=== PATIENT | female | born 1955 | race Caucasian/White ===

== ENCOUNTER → 2017-09-07 | Outpatient (CLI) | payer OTHER ==
[2017-09-07 11:01] VITALS: BP 149/74; PULSE 76; RESP 16; TEMP 97.1; BMI 24.3
--- NOTE | 2017-09-07 11:56 | P.HPOB ---
History of Present Illness H&P Date: 09/07/17 Chief Complaint: The patient is here for her routine gynecologic exam and mammogram. This is a 61 year old with an LMP of 2009. The patient is without gynecologic complaints and denies any postmenopausal bleeding. Review of Systems She has lost 15 pounds over the last 4 years with diet changes. She denies respiratory, cardiac, or G.I. problems. 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 She has had 5 vaginal deliveries and 3 spontaneous abortions. Past Surgical History: Breast Surgery (Multiple biopsies in the past), Cholecystectomy, Tubal Ligation Additional Past Surgical History / Comment(s): Multiple moles removed in the past. 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 BRCA testing was negative.) Medications and Allergies Home Medications Medication Instructions Recorded Confirmed Type No Known Home Medications [No 09/07/17 09/07/17 History Known Home Medications] Allergies Allergy/AdvReac Type Severity Reaction Status Date / Time Tetracyclines Allergy Rash/Hives Verified 11/07/13 12:14 codeine AdvReac Nausea & Verified 11/07/13 12:14 Vomiting Exam - Vital Signs Vital signs: Vital Signs Temp Pulse Resp BP 09/07/17 10:44 97.1 F L 76 16 149/74 Intake and Output 09/06/17 09/07/17 09/07/17 22:59 06:59 14:59 Other: Weight 64.41 kg Height 5'4", BMI 24.4. This is a well-developed well-nourished white female who is alert and oriented times 3 in no acute distress. HEENT: Within normal limits. NECK: Supple without mass or thyromegaly. CHEST AND LUNGS: Clear to auscultation. HEART: Regular rate and rhythm. BREASTS: Are without mass or discharge. AXILLARY EXAM: Negative for adenopathy. BACK: Negative for CVA tenderness. ABDOMEN: Soft, nontender, without palpable masses. PELVIC EXAM: Normal external genitalia with mild atrophy. Cervix reveals a small benign appearing endocervical polyp measuring approximately 5 mm. The cervix is otherwise unremarkable. The vagina appears normal with mild atrophy. There is no unusual discharge. There is no evidence of prolapse. The uterus is midposition, nongravid size and nontender. There are no palpable adnexal masses or tenderness. RECTAL EXAM: rectovaginal exam is negative for mass or tenderness and is negative for occult blood. EXTREMITIES: Nontender. IMPRESSION: 1. 61-year-old menopausal female with benign appearing endocervical polyp which is asymptomatic. 2. Otherwise unremarkable gynecologic exam. 3. Strong family history of breast cancer. PLAN: 1. Pap smear was performed. 2. We have discussed the endocervical polyp. She is declining removal of the polyp therefore, we will follow this conservatively. She will call if she has any abnormal vaginal bleeding. 3. Screening mammogram will be done today. 4. We have discussed BRCA testing which she understands is available. Her daughter tested negative for this, but her other family members who had breast cancer were not tested. 5. I have recommended screening colonoscopy since she has never had this done. She is declining this. She will let me know if she changes her mind. 6. Osteoporosis prevention was discussed. Bone density screening was recommended and an order slip was given the patient for this. 7. She will return in one year and PRN
--- NOTE | 2017-09-08 10:42 | MM ---
Reason for exam: screening (asymptomatic). Last mammogram was performed 3 years and 3 months ago. History: Patient is postmenopausal and history of other cancer. Family history of breast cancer in mother at age 60, premenopausal breast cancer in sister at age 48, and breast cancer in sister at age 51. Benign US breast aspiration ea add RT of the right breast, November 20, 2013. Benign US breast aspiration single LT of the left breast, November 20, 2013. Benign US breast aspiration single RT of the right breast, November 20, 2013. Benign US left CoreBiopsy of the left breast, November 06, 2004. Cyst aspiration of the left breast. 3 excisional biopsies of the left breast. Took hormonal contraceptives for 4 years. Physical Findings: A clinical breast exam by your physician is recommended on an annual basis and results should be correlated with mammographic findings. MG 3D Screening Mammo W/Cad Bilateral CC and MLO view(s) were taken. Prior study comparison: June 04, 2014, bilateral MG diagnostic mammo w CAD LAYLA. November 07, 2013, bilateral MG diagnostic mammo w CAD [facility]LA. The breast tissue is heterogeneously dense. This may lower the sensitivity of mammography. There is chronic nodularity. New nodule upper right breast 2.2cm from nipple. New distortion upper outer left breast. New nodule lower inner left breast 4.4cm from nipple. This finding is changed when compared with previous exams. ASSESSMENT: Incomplete: need additional imaging evaluation, BI-RAD 0 RECOMMENDATION: Special view mammogram and ultrasound of both breasts. [facility] will attempt to contact patient to return for supplemental views and ultrasound.
== END | disposition home or self-care (01) ==
LOC: WWCWWP 10:32
PROVIDERS: ATTEND Obstetrics & Gynecology
DX: Z12.31 Encounter for screening mammogram for malignant neoplasm of breast (principal)
CPT/HCPCS: 77063; 77067

== ENCOUNTER → 2017-09-15 | Outpatient (CLI) | payer OTHER ==
--- NOTE | 2017-09-15 11:25 | MM ---
Reason for exam: additional evaluation requested from abnormal screening. Last mammogram was performed less than 1 month ago. History: Patient is postmenopausal and history of other cancer. Family history of breast cancer in mother at age 60, premenopausal breast cancer in sister at age 48, and breast cancer in sister at age 51. Benign US breast aspiration ea add RT of the right breast, November 20, 2013. Benign US breast aspiration single LT of the left breast, November 20, 2013. Benign US breast aspiration single RT of the right breast, November 20, 2013. Benign US left CoreBiopsy of the left breast, November 06, 2004. Cyst aspiration of the left breast. 3 excisional biopsies of the left breast. Took hormonal contraceptives for 4 years. Physical Findings: Nurse did not find any significant physical abnormalities on exam. MG 3D Work Up W/Cad LAYLA Bilateral spot compression CC, spot compression MLO, and ML view(s) were taken. Prior study comparison: September 07, 2017, bilateral MG 3d screening mammo w/cad. June 04, 2014, bilateral MG diagnostic mammo w CAD LAYLA. There is a low density mass in the left lower inner quadrant 4cm from nipple that persists on additional views. There is a subtle retroareolar right upper outer quadrant focal asymmetry appearing less conspicuous on additional views. Upper left asymmetry resolves on additional views and appears as fibroglandular tissue. These results were verbally communicated with the patient and result sheet given to the patient on 09/15/17. ASSESSMENT: Incomplete: need additional imaging evaluation, BI-RAD 0 RECOMMENDATION: Ultrasound of both breasts. (left lower inner quadrant, right upper outer quadrant retroareolar)
--- NOTE | 2017-09-15 11:27 | USB ---
Reason for exam: additional evaluation requested from abnormal screening. History: Patient is postmenopausal and history of other cancer. Family history of breast cancer in mother at age 60, premenopausal breast cancer in sister at age 48, and breast cancer in sister at age 51. Benign US breast aspiration ea add RT of the right breast, November 20, 2013. Benign US breast aspiration single LT of the left breast, November 20, 2013. Benign US breast aspiration single RT of the right breast, November 20, 2013. Benign US left CoreBiopsy of the left breast, November 06, 2004. Cyst aspiration of the left breast. 3 excisional biopsies of the left breast. Took hormonal contraceptives for 4 years. US Breast Workup Limited LAYLA Right limited breast ultrasound including focal area of concern, retroareolar and axilla demonstrates a 3mm shadowing calcified cyst at the posterior nipple. Left limited breast ultrasound including focal area of concern, retroareolar and axilla demonstrates a 5 x 4 x 5mm complex cyst at 6 o'clock, a 7 x 6 x 10mm complex cyst at 6 o'clock and a 10 x 6 x 6mm calcified cyst at the posterior nipple. These results were verbally communicated with the patient and result sheet given to the patient on 09/15/17. ASSESSMENT: Benign, BI-RAD 2 RECOMMENDATION: Return to routine screening mammogram schedule for both breasts.
== END | disposition home or self-care (01) ==
LOC: RADMAMWWP 09:01
PROVIDERS: ATTEND Obstetrics & Gynecology
DX: R92.8 Other abnormal and inconclusive findings on diagnostic imaging of breast (principal)
CPT/HCPCS: 77062; 77066

== ENCOUNTER → 2018-12-21 | Outpatient (CLI) | payer OTHER ==
[2018-12-21 09:27] VITALS: BP 121/75; PULSE 84; RESP 16; TEMP 98.1; BMI 25.2
--- NOTE | 2018-12-21 10:06 | P.HPOB ---
History of Present Illness H&P Date: 12/21/18 Chief Complaint: The patient is here for her routine gynecologic exam and ma mmogram. This is a 62-year-old with an LMP of 2011. The patient is without gynecologic complaints and denies any postmenopausal bleeding. Review of Systems The patient has gained 4 pounds over the last year. She denies respiratory, cardiac, or G.I. problems. 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 She has had 5 vaginal deliveries and 3 spontaneous abortions. History of Any Multi-Drug Resistant Organisms: None Reported Past Surgical History: Breast Surgery, Cholecystectomy, Tubal Ligation Additional Past Surgical History / Comment(s): Multiple breast biopsies. Multiple moles removed in the past. 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 - Past Family History Mother Family Medical History: Cancer Additional Family Medical History / Comment(s): Breast cancer. Sister(s) Family Medical History: Cancer Additional Family Medical History / Comment(s): 2 sisters with breast cancer. Daughter(s) Family Medical History: Cancer Additional Family Medical History / Comment(s): Breast cancer at age 38. BRCA testing was negative. Medications and Allergies Home Medications Medication Instructions Recorded Confirmed Type No Known Home Medications 09/07/17 12/21/18 History Allergies Allergy/AdvReac Type Severity Reaction Status Date / Time Tetracyclines Allergy Rash/Hives Verified 12/21/18 09:26 codeine AdvReac Nausea & Verified 12/21/18 09:26 Vomiting Exam Vital Signs Temp Pulse Resp BP Pulse Ox 12/21/18 09:21 98.1 F 84 16 121/75 99 Intake and Output 12/20/18 12/21/18 12/21/18 22:59 06:59 14:59 Other: Weight 66.678 kg Height 5'4", weight 147 pounds, BMI 25.2. This is a well-developed well-nourished weight female who is alert and oriented times 3 in no acute distress. HEENT: Within normal limits. NECK: Supple without mass or thyromegaly. CHEST AND LUNGS: Clear to auscultation. HEART: Regular rate and rhythm. BREASTS: Are without mass or discharge. AXILLARY EXAM: Negative for adenopathy. BACK: Negative for CVA tenderness. ABDOMEN: Soft, nontender, without palpable masses. PELVIC EXAM: Normal external genitalia with mild atrophy. Vagina appears normal with mild atrophy. The cervix has an endocervical polyp that appears benign. The polyp has the appearance of a small tongue approximately the width of the external os and measures approximately 5 mm x 4 mm. There is no unusual discharge. There is no evidence of prolapse. The uterus is midposition, nongravid size and nontender. There are no palpable adnexal masses or tenderness. RECTAL EXAM: rectovaginal exam is negative for mass or tenderness and is negative for occult blood. EXTREMITIES: Nontender. IMPRESSION: 1. 62-year-old menopausal female with stable benign appearing endocervical polyp which is asymptomatic. 2. Otherwise unremarkable gynecologic exam. 3. Strong family history of breast cancer. PLAN: 1. Pap smear was deferred since she had a normal one on 09/07/2017. She will call if she has any abnormal vaginal bleeding. We discussed the option of removal of the endocervical polyp which she again is declining. We will continue to follow it conservatively. 2. Self breast awareness was discussed with the patient. 3. Screening mammogram will be done today. 4. Osteoporosis prevention was discussed. I have stressed the importance of adequate calcium, vitamin D and regular exercise. Recommended amounts of calcium and vitamin D were also discussed. I have again recommended bone density testing. She would like to wait until next year to have this done. 5. I have again recommended screening colonoscopy. She will discuss her options including colonoscopy and Cologuard testing with her primary care physician. 6. She was advised to return in one year for her annual well woman exam.
--- NOTE | 2018-12-22 14:26 | MM ---
Reason for exam: screening (asymptomatic). Last mammogram was performed 1 year and 3 months ago. History: Patient is postmenopausal and history of other cancer. Family history of breast cancer in mother at age 60, premenopausal breast cancer in sister at age 48, and breast cancer in sister at age 51. Benign US breast aspiration ea add RT of the right breast, November 20, 2013. Benign US breast aspiration single LT of the left breast, November 20, 2013. Benign US breast aspiration single RT of the right breast, November 20, 2013. Benign US left CoreBiopsy of the left breast, November 06, 2004. Cyst aspiration of the left breast. 3 excisional biopsies of the left breast. Took hormonal contraceptives for 4 years. Physical Findings: A clinical breast exam by your physician is recommended on an annual basis and results should be correlated with mammographic findings. MG 3D Screening Mammo W/Cad Bilateral CC and MLO view(s) were taken. Prior study comparison: September 15, 2017, bilateral MG 3d work up w/cad [facility]. September 07, 2017, bilateral MG 3d screening mammo w/cad. The breast tissue is heterogeneously dense. This may lower the sensitivity of mammography. There are benign appearing round oval circumscribed bilateral waxing/waning masses most characteristic of cysts. Benign appearing bilateral calcifications. Bilateral biopsy markers. ASSESSMENT: Benign, BI-RAD 2 RECOMMENDATION: Routine screening mammogram of both breasts in 1 year.
== END ==
LOC: WWCWWP 09:14
PROVIDERS: ATTEND Obstetrics & Gynecology
DX: Z12.31 Encounter for screening mammogram for malignant neoplasm of breast (principal)
CPT/HCPCS: 77063; 77067

== ENCOUNTER → 2022-07-30 | Outpatient (CLI) | payer MEDICARE ==
--- NOTE | 2022-07-30 09:07 | MM ---
Reason for Exam: Clinical finding. Last mammogram was performed 3 year(s) and 7 month(s) ago. Patient History: Menarche at age 16. First Full-Term at age 22. Postmenopausal. Other cancer. Patient used Hormonal Contraceptives for 4 years. Cyst Aspiration on the Left side. Excisional Biopsy on the Left side. Excisional Biopsy on the Left side. Excisional Biopsy on the Left side. 11/20/2013, Benign Cyst Aspiration on the right side. 11/20/2013, Benign Cyst Aspiration on the left side. 11/20/2013, Benign Cyst Aspiration on the right side. 11/06/2004, Benign Core Biopsy on the left side. Sister had breast cancer, age 48. Sister had breast cancer, age 51. Daughter had breast cancer, left, age 38. Sister tested for BRCA1 outcome was negative. Daughter tested for BRCA1 outcome was negative. Risk Values: Alysia 5 year model risk: 9.2%. NCI Lifetime model risk: 29.2%. Tissue Density: The breast tissue is heterogeneously dense. This may lower the sensitivity of mammography. Findings: Analyzed By CAD. Bilateral microclips related to prior biopsies. Enlarging subareolar lobulated mass left breast. Additional chronic appearing masses are present in the left breast as well. On the right, there are subtle areas of grouped/regional calcifications laterally and inferiorly which may be new. However, on magnification views, they become less pronounced and would not be amenable to stereotactic biopsy. They can be reassessed at 6 months. Overall Assessment: Incomplete: need additional imaging evaluation, BI-RAD 0 Management: Diagnostic Breast Ultrasound of both breasts. Electronically signed and approved by: Henrry Alberts M.D. Radiologist
--- NOTE | 2022-07-30 10:16 | USB ---
Reason for Exam: Clinical finding. Patient History: Menarche at age 16. First Full-Term at age 22. Postmenopausal. Other cancer. Patient used Hormonal Contraceptives for 4 years. Cyst Aspiration on the Left side. Excisional Biopsy on the Left side. Excisional Biopsy on the Left side. Excisional Biopsy on the Left side. 11/20/2013, Benign Cyst Aspiration on the right side. 11/20/2013, Benign Cyst Aspiration on the left side. 11/20/2013, Benign Cyst Aspiration on the right side. 11/06/2004, Benign Core Biopsy on the left side. Sister had breast cancer, age 48. Sister had breast cancer, age 51. Daughter had breast cancer, left, age 38. Sister tested for BRCA1 outcome was negative. Daughter tested for BRCA1 outcome was negative. Risk Values: Alysia 5 year model risk: 9.2%. NCI Lifetime model risk: 29.2%. Technique: Method: Whole Breast Handheld. Prior Study Comparison: 09/07/2017 Bilateral Screening Mammogram, [facility]. 09/15/2017 Bilateral Diagnostic Mammogram, [facility]. 12/21/2018 Bilateral Screening Mammogram, [facility]. Findings: The whole breast of both breasts, the axilla of both breasts and the retroareolar of both breasts were scanned. A complete US of all four quadrants of both breasts, axilla, and retro-areolar region were reviewed. Right: * *At the 6:00 position, 3 cm from the nipple, there is a circumscribed round 7 x 6 x 6 mm hypoechoic lesion with posterior through transmission. On the patient's 2013 exam, we note a much larger 1.2 cm cyst in this location. Probable cyst with debris. Six-month follow-up recommended. * At the 12:00 position, 1 cm from the nipple, there is a benign 5 mm cyst. * No other solid or cystic lesion or axillary lymphadenopathy. Left: * At the patient's large palpable site located behind the nipple, there is a large, lobulated cyst measuring 3.9 x 3.1 x 2.2 cm. Minimal internal debris is present. The patient desires cyst aspiration. * At 5:00, 4 cm from the nipple, there is a benign 7 x 6 x 4 mm cyst. * At 6:00, 3 cm from the nipple, there is a benign bilobed 9 x 5 x 5 mm cyst. * At 7:00, 3 cm from the nipple, there is a vertically oriented area of shadowing measuring 5 x 5 x 4 mm for which tissue sampling is recommended. * No other solid or cystic lesion or axillary lymphadenopathy. Overall Assessment: Suspicious, BI-RAD 4 Management: Ultrasound Core Biopsy of the left breast. Diagnostic Mammogram of the right breast in 6 months. Left: * Ultrasound-guided core needle biopsy 7:00 area of shadowing. * Ultrasound-guided cyst aspiration large palpable 3.9 cm cyst behind the nipple (patient desires for symptomatic relief). Right: * Six-month follow-up diagnostic right breast mammogram for calcifications. * Six-month follow-up 6:00 right breast ultrasound for suspected debris filled cyst. Electronically signed and approved by: Henrry Alberts M.D. Radiologist
== END | disposition home or self-care (01) ==
LOC: RADMAMWWP 08:15
PROVIDERS: ATTEND Family Medicine
DX: R92.2 Inconclusive mammogram (principal); N60.02 Solitary cyst of left breast; Z78.0 Asymptomatic menopausal state; Z80.3 Family history of malignant neoplasm of breast
CPT/HCPCS: 77066; 76641; G0279; 77062

== ENCOUNTER → 2022-08-13 | Day surgery (SDC) | payer MEDICARE ==
--- NOTE | 2022-08-13 15:36 | USB ---
Risk Values: Alysia 5 year model risk: 9.2%. NCI Lifetime model risk: 29.2%. Findings: Initial ultrasound of the left breast for planning purposes fail to show persistence of the shadowing area at 7:00 position on antiradial view. Radial view suggests some shadowing breast tissue. No well-defined target for biopsy could be secured. Six-month follow-up recommended to reassess this region. Management: Diagnostic Breast Ultrasound of the left breast in 6 months. Electronically signed and approved by: Henrry Alberts M.D. Radiologist
--- NOTE | 2022-08-18 08:37 | USB ---
Risk Values: Alysia 5 year model risk: 9.2%. NCI Lifetime model risk: 29.2%. Prior Study Comparison: 09/15/2017 Bilateral Diagnostic Mammogram, [facility]. 12/21/2018 Bilateral Screening Mammogram, [facility]. 07/30/2022 Bilateral MG 3D diag mammo w/cad LAYLA, [facility]. Pathology Description: Location: 2 o'clock, upper outer quadrant. The ultrasound guided cyst aspiration procedure was explained to the patient. The risks, benefits, alternatives were discussed. An informed consent was then obtained. A time out was performed. The patient was placed in supine positioning for imaging and for the procedure. The overlying skin was prepped with betadine and sterilely draped in usual sterile fashion. 5 ml 1% lidocaine was used as anesthetic into the skin and deeper breast tissue up to area of concern in the left 2 o'clock breast, cm from nipple. Under ultrasound guidance, an 18-gauge spinal needle was advanced into the cyst and aspiration yielded 15 mL of dark brown fluid. The benign aspirate was discarded. No clip was placed. Good hemostasis was obtained with direct pressure. The patient tolerated the procedure well without any immediate complication. The patient was discharged to home in stable condition. Impression: Successful therapeutic ultrasound guided cyst aspiration 2:00 left breast. Patient due for six-month follow-up diagnostic right breast mammogram for follow-up of calcifications. Also, refer to discontinued ultrasound-guided biopsy of the left breast from today where a 6 month follow-up left breast ultrasound is being recommended. Pathology Results: Specimen not sent to lab. Management: Diagnostic Breast Ultrasound of the left breast in 6 months. Electronically signed and approved by: Henrry Alberts M.D. Radiologist
== END ==
LOC: RADUSWWP 12:46
PROVIDERS: ATTEND Surgery
DX: R92.1 Mammographic calcification found on diagnostic imaging of breast (principal)
CPT/HCPCS: 76942